=== PATIENT | female | born 1970 | race African-American/Black ===

== ENCOUNTER → 2017-06-07 16:06 | Emergency (ER) | payer OTHER ==
[~2017-06-07 16:06] MED LIST: Albuterol HFA INHALER* 8 gm MDI INH ONE; Albuterol/Ipratropium NEB.SOL* Albuterol 2.5 MG/Ipratropium 0.5 MG 3 ML INH SCH; Albuterol/Ipratropium NEB.SOL* Albuterol 2.5 MG/Ipratropium 0.5 MG 3 ML ONE; Ketorolac INJ* 30 MG/ML 1 ML VIAL IM ONE; NS 0.9% 1000 ML* 1,000 ML IV ONE
[2017-06-07 16:50] LABS: ABS Basophils 0.1 10^3/ul (0-0.2); ABS Eosinophils 0.2 10^3/ul (0-0.6); ABS Lymphocytes 1.6 10^3/ul (1.0-4.8); ABS Monocytes 1.2 10^3/ul (0-0.8); ABS Neutrophils 12.9 10^3/ul (1.5-7.7); ABS Nucleated RBC 0 10^3/ul; Hematocrit 38 % (35-47); Hemoglobin 12.8 g/dl (12.0-16.0); Lymphocyte % 10.2 % (25-47); Mean Corpuscular HGB Conc 34 g/dl (31-36); Mean Corpuscular Hemoglobin 31 pg (27-31); Mean Corpuscular Volume 91 fL (80-97); Mean Platelet Volume 8.7 um3 (7.4-10.4); Nucleated Red Blood Cells % 0; Platelet Count 292 10^3/ul (150-450); Red Blood Count 4.14 10^6/ul (4.0-5.4); Red Cell Distribution Width 14 % (10.5-15)
[2017-06-07 17:07] LABS: EGFR Non-African American 77.7 (>60)
--- NOTE | 2017-06-07 17:24 | RAD ---
HISTORY: Cough COMPARISONS: June 07, 2010 VIEWS: 4: Frontal dual-energy and lateral views of the chest. FINDINGS: CARDIOMEDIASTINAL SILHOUETTE: The cardiomediastinal silhouette is normal. KRYSTAL: The krystal are normal. PLEURA: The costophrenic angles are sharp. No pleural abnormalities are noted. LUNG PARENCHYMA: The lungs are clear. ABDOMEN: The upper abdomen is clear. There is no subphrenic gas. BONES AND SOFT TISSUES: No bone or soft tissue abnormalities are noted. OTHER: None. IMPRESSION: NO ACTIVE CARDIOPULMONARY DISEASE.
[2017-06-07 17:58] VITALS: BP 125/65
--- NOTE | 2017-06-09 07:54 | ED ---
Eduardo Glasgow Angela, scribed for Ruben Patel MD on 06/07/17 at 1630 . Respiratory - HPI Summary HPI Summary: This pt is a 46 y/o female presenting to [facility] c/o cough and sore throat. Pt reports her cough began last night and her sore throat began this morning. She states her cough is not very productive and she is able to taste the sputum in her mouth. Denies fever, chills, SOB, chest pain. Pt additionally reports right elbow pain, denies trauma or injury. 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 PMHx includes HTN and DM. - History of Current Complaint Chief Complaint: EDGeneral Stated Complaint: GENERAL ILLNESS Hx Obtained From: Patient Onset/Duration: Lasting Days, Still Present Timing: Constant Current Severity: Severe Pain Intensity: 10 - sore throat Character: Cough (Productive) Sputum Amount: Swallowed by Patient Aggravating Factor(s): Nothing Alleviating Factor(s): Nothing Associated Signs and Symptoms: URI - cough and sore throat, Nasal Congestion - Allergy/Home Medications Allergies/Adverse Reactions: Allergies Allergy/AdvReac Type Severity Reaction Status Date / Time codeine Allergy Nausea And Verified 06/07/17 16:17 Vomiting PMH/Surg Hx/FS Hx/Imm Hx Endocrine/Hematology History: Reports: Hx Diabetes Cardiovascular History: Reports: Hx Hypertension Respiratory History: Reports: Hx Asthma Infectious Disease History: No Infectious Disease History: Denies: Traveled Outside the [place] in Last 30 Days - Family History Known Family History: Positive: Cardiac Disease - father - Social History Alcohol Use: Occasionally Substance Use Type: Reports: None Smoking Status (MU): Current Every Day Smoker Review of Systems Negative: Fever, Chills Positive: Sore Throat Negative: Chest Pain Positive: Cough. Negative: Shortness Of Breath Musculoskeletal: Other - right elbow pain Skin: Negative Neurological: Negative All Other Systems Reviewed And Are Negative: Yes Physical Exam - Summary Physical Exam Summary: VITAL SIGNS: Reviewed. GENERAL: Patient is a well-developed and nourished female who is lying comfortable in the stretcher. Patient is not in any acute respiratory distress. HEAD AND FACE: No signs of trauma. No ecchymosis, hematomas or skull depressions. No sinus tenderness. Positive for nasal congestion and runny nose. EYES: PERRLA, EOMI x 2, No injected conjunctiva, no nystagmus. EARS: Hearing grossly intact. Ear canals and tympanic membranes are within normal limits. MOUTH: Pharyngeal erythema. NECK: Supple, trachea is midline, no adenopathy, no JVD, no carotid bruit, no c- spine tenderness, neck with full ROM. CHEST: Symmetric, no tenderness at palpation LUNGS: Wheezing in both bases of the lungs. CVS: Regular rate and rhythm, S1 and S2 present, no murmurs or gallops appreciated. ABDOMEN: Soft, non-tender. No signs of distention. No rebound no guarding, and no masses palpated. Bowel sounds are normal. EXTREMITIES: FROM in all major joints, no edema, no cyanosis or clubbing. NEURO: Alert and oriented x 3. No acute neurological deficits. Speech is normal and follows commands. SKIN: Dry and warm Triage Information Reviewed: Yes Vital Signs On Initial Exam: Initial Vitals Temp Pulse Resp BP Pulse Ox 97 F 105 20 165/88 94 06/07/17 16:14 06/07/17 16:14 06/07/17 16:14 06/07/17 16:14 06/07/17 16:14 Vital Signs Reviewed: Yes Diagnostics - Vital Signs Vital Signs Temp Pulse Resp BP Pulse Ox 06/07/17 16:14 97 F 105 20 165/88 94 - Laboratory Result Diagrams: 06/07/17 16:39 06/07/17 16:39 Lab Statement: Any lab studies that have been ordered have been reviewed, and results considered in the medical decision making process. - Radiology Chest XR Xray Interpretation: No Acute Changes - IMPRESSION: No active cardiopulmonary disease. Dr. Patel has reviewed this radiology report. Radiology Interpretation Completed By: Radiologist Re-Evaluation - Re-Evaluation First Eval Re-Evaluation Time: 17:50 Comment: I reviewed the lab and XR results with the pt. She will be discharged home. Disposition - Course Assessment/Plan: This pt is a 46 y/o female presenting to [facility] c/o cough and sore throat. Pt reports her cough began last night and her sore throat began this morning. She states her cough is not very productive and she is able to taste the sputum in her mouth. Denies fever, chills, SOB, chest pain. Pt additionally reports right elbow pain, denies trauma or injury. 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 PMHx includes HTN and DM. Test results without any significant abnormalities except for WBC of 16, glucose of 145, CRP of 94.28. Influenza A and B are both negative. Rapid strep test is negative. Chest XR: No active cardiopulmonary disease. In the ED course the pt was given IV fluids, duoneb, and toradol for the pain. After these medications the pt reports she is feeling better and her pain has resolved. Therefore she will be discharged to home with follow up from her PCP. I discussed all the findings and test results with the patient. All questions were answered to patient satisfaction. There were no further complaints or concerns. Pt will be discharged home with an albuterol inhaler and a prescription for Azithromycin. She is instructed to return to the ED for any worsening or new symptoms. Pt is hemodynamically stable, alert and oriented x3. - Diagnoses Provider Diagnoses: Bronchitis Discharge - Sign-Out/Discharge Documenting (check all that apply): Discharge - discharge to home - Discharge Plan Condition: Stable Disposition: HOME Prescriptions: Azithromyxin BILLY (NF) [Z-Billy (Zithromax) 250 mg tabs #6] 2 tab PO .TODAY, THEN 1 DAILY #6 tab Patient Education Materials: Acute Bronchitis (ED) Referrals: Sahe Jama MD [Primary Care Provider] - 3 Days Additional Instructions: Please follow up with your primary care provider. RETURN TO THE ED FOR ANY NEW OR WORSENING SYMPTOMS. The documentation as recorded by the Eduardo whatley Angela accurately reflects the service I personally performed and the decisions made by me, Ruben Patel MD.
== END | disposition home or self-care (01) ==
LOC: ED 16:06
DX: J40 Bronchitis, not specified as acute or chronic (principal); J02.9 Acute pharyngitis, unspecified; Z88.8 Allergy status to other drugs, medicaments and biological substances; E11.9 Type 2 diabetes mellitus without complications; I10 Essential (primary) hypertension; J45.909 Unspecified asthma, uncomplicated; F17.210 Nicotine dependence, cigarettes, uncomplicated
CPT/HCPCS: 36415; 71046; 80053; 85025; 86140; 87502; 87651; 94640; 96372; 99282; A9270-GY; J1885

== ENCOUNTER 2017-10-09 06:28 | Inpatient (IN) | payer OTHER ==
[2017-10-09] MEDS ORDERED: Ketorolac INJ* 30 MG/ML 1 ML VIAL IV ONE (06:57)
[2017-10-09] MEDS ORDERED: Aspirin 81 mg CHEW TAB* 81 MG TAB.CHEW PO ONE (07:08)
[2017-10-09] MEDS ORDERED: Nitroglycerin TAB 0.4 MG* 0.4 MG TAB SL ONE (07:08)
[2017-10-09] MEDS ORDERED: Heparin for STEMI(*) 5,000 UNITS/ML 1 ML VIAL IV ONE (07:13)
[2017-10-09] MEDS ORDERED: Ticagrelor* 90 MG TAB PO ONE (07:13)
--- NOTE | 2017-10-09 07:19 | ED ---
HPI Chest Pain - HPI Summary HPI Summary: Patient is a 47-year-old female with a history of HTN, HCL, diabetes and smoking history presenting to the ED with 24 hours of intermittent chest pain. Chest pain was present on exertion yesterday while walking her dog, and relieved after several minutes. She then states she began coughing frequently and develop some mid upper back pain. Chest pain has been intermittent since yesterday and occurring every few hours to every few minutes. She endorses radiation of pain from the midsternal region to the bilateral neck and radiating to the right arm. This is also intermittent. Denies any sweats or chills. Denies any known fever. She has not taken any medication prior to arrival. - History of Current Complaint Chief Complaint: EDChestPainROMI Time Seen by Provider: 10/09/17 06:38 Hx Obtained From: Patient Onset/Duration: Started Days Ago - 24 hours Timing: Constant Initial Severity: Worse Since: - LAST EVENING Current Severity: Severe Pain Intensity: 10 Pain Scale Used: 0-10 Numeric Chest Pain Radiates: No - Review Character: Dull/Aching - Back pain and midsternal chest pain radiating into the right arm Aggravating Factor(s): Exertion Alleviating Factor(s): Nothing Associated Signs and Symptoms: Positive: Chest Pain - Risk Factors Pulmonary Embolism Risk Factors: Negative TAD Risk Factors: Negative AMI/ACS Risk Factors: Obesity, Family History, Smoking, Dyslipidemia - Allergy/Home Medications Allergies/Adverse Reactions: Allergies Allergy/AdvReac Type Severity Reaction Status Date / Time codeine Allergy Nausea And Verified 06/07/17 16:17 Vomiting PMH/Surg Hx/FS Hx/Imm Hx Previously Healthy: Yes Endocrine/Hematology History: Reports: Hx Diabetes Cardiovascular History: Reports: Hx Hypertension Respiratory History: Reports: Hx Asthma - Immunization History Hx Pertussis Vaccination: No Immunizations Up to Date: Unable to Obtain/Confirm Infectious Disease History: No Infectious Disease History: Denies: Traveled Outside the [place] in Last 30 Days - Family History Known Family History: Positive: Cardiac Disease - father - Social History Occupation: Employed Full-time Lives: With Family Alcohol Use: Occasionally Hx Substance Use: No Substance Use Type: Reports: None Hx Tobacco Use: Yes Smoking Status (MU): Current Every Day Smoker Review of Systems Constitutional: Negative Negative: Fever, Chills, Fatigue, Skin Diaphoresis Positive: Chest Pain. Negative: Palpitations Negative: Shortness Of Breath, Cough Negative: Abdominal Pain, Vomiting, Diarrhea, Nausea Genitourinary: Negative Positive: no symptoms reported, see HPI Positive: Arthralgia - mid upper back pain Skin: Negative Neurological: Negative All Other Systems Reviewed And Are Negative: Yes Physical Exam Triage Information Reviewed: Yes Vital Signs On Initial Exam: Initial Vitals Temp Pulse Resp BP Pulse Ox 97.5 F 99 20 142/113 95 10/09/17 06:29 10/09/17 06:29 10/09/17 06:29 10/09/17 06:29 10/09/17 06:29 Vital Signs Reviewed: Yes Appearance: Positive: Well-Appearing, Well-Nourished Skin: Positive: Warm, Skin Color Reflects Adequate Perfusion Head/Face: Positive: Normal Head/Face Inspection Eyes: Positive: EOMI, RAMONITA, Conjunctiva Clear Neck: Positive: Supple, No Lymphadenopathy Respiratory/Lung Sounds: Positive: Clear to Auscultation, Breath Sounds Present Cardiovascular: Positive: Normal - On physical examination, no findings of abdominal or carotid bruits, RRR, Pulses are Symmetrical in both Upper and Lower Extremities. Negative: Leg Edema Left, Leg Edema Right Bowel Sounds: Positive: Present Musculoskeletal: Positive: Normal, Strength/ROM Intact Neurological: Positive: Sensory/Motor Intact, Alert, Oriented to Person Place, Time, Speech Normal Psychiatric: Positive: Normal, Affect/Mood Appropriate AVPU Assessment: Alert Diagnostics - Vital Signs Vital Signs Temp Pulse Resp BP Pulse Ox 10/09/17 06:29 97.5 F 99 20 142/113 95 - Laboratory Result Diagrams: 10/09/17 07:13 10/09/17 07:13 Lab Statement: Any lab studies that have been ordered have been reviewed, and results considered in the medical decision making process. Chest Pain Course/Dx - Course Course Of Treatment: On arrival, at 6:38 AM EKG shows normal sinus rhythm with no ST elevations. She refuses any medications on arrival, however she is agreeable to Toradol for her back pain. After arrival, at approximately 7 AM, patient developed worsening chest pain in the RN noticed on the monitor ST elevations in V5 and V6. A repeat EKG was immediately obtained which confirms ST elevations in V5 and V6 with an acute DC. STEMI alert was called at 7:[address] Engel made aware. Heparin, Brillinta, aspirin was given. Heparin drip was beginning to start at 7:55 AM when she was transferred upstairs. Immediately after medications were given, patient endorses improvement of chest pain, however continues to endorse back pain. - Chest Pain Differential Diagnosis/HQI/PQRI: Acute DC, ACS, Angina - Diagnoses Provider Diagnoses: STEMI (ST elevation myocardial infarction) During the Visit The Following Alert/Code Occurred: STEMI - Provider Notifications Discussed Care Of Patient With: Gilson Engel Time Discussed With Above Provider: 07:15 Instructed by Provider To: MD Will See In ED Admit/Transition Orders Completed By ED Provider: No - Critical Care Time Critical Care Time: 30-74 min - 60 minutes CC time d/t STEMI Discharge - Sign-Out/Discharge Documenting (check all that apply): Patient Departure - Discharge Plan Condition: Fair Disposition: ADMITTED TO [facility] - Billing Disposition and Condition Condition: FAIR Disposition: Admitted to [facility]
[2017-10-09] MEDS ORDERED: Lidocaine 1%* 5 ML VIAL ONE (07:21)
[2017-10-09] MEDS ORDERED: Heparin 2 UNITS/ML IVPREMIX* 2,000 ML IV ONE (07:21)
[2017-10-09] MEDS ORDERED: Iohexol 350 (CONTRAST) 200 ML MDV IV ONE (07:21)
[2017-10-09 07:26] LABS: ABS Basophils 0.1 10^3/ul (0-0.2); ABS Eosinophils 0.1 10^3/ul (0-0.6); ABS Lymphocytes 1.8 10^3/ul (1.0-4.8); ABS Monocytes 0.6 10^3/ul (0-0.8); ABS Neutrophils 7.5 10^3/ul (1.5-7.7); ABS Nucleated RBC 0 10^3/ul; Eosinophil % 1.4 % (0-6); Hematocrit 42 % (35-47); Hemoglobin 14.3 g/dl (12.0-16.0); Lymphocyte % 18.1 % (25-47); Mean Corpuscular HGB Conc 34 g/dl (31-36); Mean Corpuscular Hemoglobin 30 pg (27-31); Mean Corpuscular Volume 87 fL (80-97); Mean Platelet Volume 8.9 um3 (7.4-10.4); Nucleated Red Blood Cells % 0; Platelet Count 294 10^3/ul (150-450); Red Blood Count 4.81 10^6/ul (4.00-5.40); Red Cell Distribution Width 14 % (10.5-15); White Blood Count 10.2 10^3/ul (3.5-10.8)
[2017-10-09] MEDS ORDERED: VERAPAMIL 2.5 MG/ML 2 ML VIAL ** 5 mg/2 ml ONE (07:29)
[2017-10-09] MEDS ORDERED: Heparin(*) 1000 UNIT/ML 10 ML VIAL CATH LAB IV ONE (07:30)
[2017-10-09] MEDS ORDERED: nitroGLYCERIN DRIP* 25,000 MCG/250 ML BTL ONE (07:31)
[2017-10-09 07:34] LABS: INR 0.82 (0.77-1.02)
--- NOTE | 2017-10-09 07:44 | RAD ---
INDICATION: Chest pain COMPARISON: June 07, 2017 TECHNIQUE: An AP portable view obtained at 0720 hours is submitted. FINDINGS: Bones/Soft Tissues: There are no acute bony findings. Cardiomediastinal: The cardiomediastinal silhouette is normal. Lungs: There are no infiltrates. Pleura: There are no pleural effusions. Other: None IMPRESSION: NO ACTIVE DISEASE.
[2017-10-09] MEDS ORDERED: Heparin DRIP 25,000 UNITS(*) 25,000 UNITS/500 ML BAG IV SCH (07:45)
[2017-10-09] MEDS ORDERED: Heparin DRIP 25,000 UNITS(*) 25,000 UNITS/500 ML BAG ONE (07:47)
[2017-10-09] MEDS ORDERED: Heparin VIAL(*) 5000 UNITS/ML VIAL (FIVE THOUSAND) IV PRN (07:52)
[2017-10-09] MEDS ORDERED: Iodixanol* (CONTRAST) 320 MG/ML 100 ML SDV ONE (08:01)
[2017-10-09] MEDS ORDERED: Midazolam* 1 MG/ML 10 ML VIAL (10 MG) ONE (08:11)
[2017-10-09] MEDS ORDERED: fentaNYL* 50 MCG/ML 2 ML VIAL (100 MCG VIAL) ONE (08:11)
[2017-10-09] MEDS ORDERED: Norepinephrine VIAL* 1 MG/ML 4 ML VIAL ONE (08:32)
[2017-10-09] MEDS ORDERED: Atropine SYRINGE* 0.1 MG/ML 10 ML SYRINGE (1 MG) ONE (08:54)
[2017-10-09] MEDS ORDERED: Nitroglycerin TAB 0.4 MG* 0.4 MG TAB SL PRN (09:04)
[2017-10-09] MEDS ORDERED: NS 0.9% 1000 ML* 400 ML IV ONE (09:04)
[2017-10-09 09:43] LABS: EGFR Non-African American 71.1 (>60)
[2017-10-09] MEDS ORDERED: Metoprolol Tartrate TAB* 25 MG PO SCH (10:00)
[2017-10-09] MEDS: Levalbuterol 0.63MG/3ML NEB* UNIT OF USE INH SCH ×2 (11:18→15:34)
[2017-10-09] MEDS ORDERED: ALPRAZolam TAB* 0.5 MG PO PRN (11:51)
[2017-10-09] MEDS ORDERED: Dextrose 50% Syringe 50 ML* 25 GM/50 ML SYRINGE IV PUSH PRN (11:59)
[2017-10-09] MEDS ORDERED: Insulin LISPRO* 1 UNITS UNIT SUBCUT SCH (12:00)
[2017-10-09] MEDS ORDERED: Nicotine PATCH 14 MG/24 HR* PATCH TRANSDERM SCH (12:00)
[2017-10-09] MEDS ORDERED: Insulin GLARGINE(*) 1 UNITS UNIT SUBCUT SCH (12:00)
--- NOTE | 2017-10-09 12:01 | HP ---
CC: Shae Jama MD; Gilson Engel MD * HISTORY AND PHYSICAL: DATE OF ADMISSION: 10/09/17 PRIMARY CARE PHYSICIAN: Shae Jama MD. HISTORY OF PRESENT ILLNESS: A 47-year-old diabetic presented to the ER with inferior ST elevation infarct. She has no previous cardiac history. For the past 24 hours, she has had waxing and waning intermittent chest discomfort radiating through to her back and into right arm. The day prior to admission, she had this with exertion walking her dog. She is subsequently developed rest pain, presented to the ER, first EKG was not diagnostic, she had recurrence of chest pain and repeat EKG demonstrated inferior ST elevation, STEMI was called. PAST MEDICAL HISTORY: Diabetes type 2, obesity, hypertension, hyperlipidemia, asthma. MEDICATIONS: Prehospital medications per the intake form: 1. Singulair 1 at bedtime. 2. Metformin 1 g b.i.d. 3. Crestor listed as 12 mg daily. 4. ?Captopril 10 mg b.i.d. ALLERGIES: CODEINE. FAMILY HISTORY: Positive for heart disease. SOCIAL HISTORY: She is a smoker. 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 REVIEW OF SYSTEMS: General: No weight loss. No fevers. COP WINDER: No history of TIA or CVA. GI: No history of bleeding. Heme: No history of malignancy or anemia. Circulatory: No claudication. Pulmonary: She denies any lung disease , hemoptysis. Remainder, all negative. PHYSICAL EXAMINATION GENERAL: She was complaining of no chest discomfort when evaluated. It resolved after nitroglycerin and institution of medical therapy in the ER. VITAL SIGNS: Presenting, BP 170/95, heart rate 93, sinus rhythm. HEENT: Normal without xanthelasma, scleral injection, or jaundice. EOMs normal. Cranial nerves grossly intact. NECK: JVP not elevated. Carotids, no bruits palpable. LUNGS: Her lungs were clear to percussion and auscultation. CARDIAC: Regular rhythm, apex and RV not palpable. No gallop, no murmur, or rub. ABDOMEN: Obese, nontender. No bruit, aorta not palpable. EXTREMITIES: Radial, femoral, and pedal pulses palpable. She has no cyanosis, clubbing, or edema. PSYCH: She is oriented appropriately, anxious. SKIN: Warm and perfused. LABORATORY DATA: EKG shows inferior ST elevation infarct. CBC and BMP are unremarkable. Chest x-ray was read as unremarkable. IMPRESSION: 1. Inferior wall ST elevation infarct. She has had stuttering symptoms for 24 hours, again is pain free with medical therapy. She had inferior injury current on the electrocardiogram. She underwent emergent catheterization. 2. Obesity. 3. Diabetes type 2. 4. Hypertension. 5. Hyperlipidemia. 6. Tobacco use. We will encourage her not to resume smoking. [id number]/[facility] #: [id number] [facility]
[2017-10-09 14:15] VITALS: BP 134/90
[2017-10-09] MEDS ORDERED: Atorvastatin* 80 MG TAB PO SCH (17:00)
[2017-10-09] MEDS ORDERED: Ticagrelor* 90 MG TAB PO SCH (21:00)
--- NOTE | 2017-10-09 23:15 | DS ---
CC: Dr. Shae Jama; Dr. Gilson Engel * DISCHARGE SUMMARY: DATE OF ADMISSION: 10/09/17 DATE OF SIGNING OUT AMA: 10/09/17 PRIMARY CARE PHYSICIAN: Dr. Shae Jama. DISCHARGE DIAGNOSES: 1. Inferior wall ST elevation infarct. 2. Diabetes type 2. 3. Obesity. 4. Hypertension. 5. Hyperlipidemia. 6. Solitary kidney. 7. Chronic obstructive pulmonary disease. CONDITION ON DISCHARGE: Guarded. DISPOSITION: The patient is signing out AMA. PROCEDURE: Cardiac cath, stent placement RCA 2.75 x 20 drug-eluting stent. DISCHARGE MEDICATIONS: 1. Aspirin 81 mg daily. 2. Lipitor 80 mg daily. 3. Toprol XL 50 mg daily. 4. Nicotine patch 14 mg q.24 hours. 5. Nitroglycerin 0.4 sublingual p.r.n. 6. Brilinta 90 mg b.i.d. for a minimum of 1 year without interruption. FOLLOWUP: Follow up next week as scheduled with Dr. Ridley, MOB-[id number], for wound check, and with Dr. Jama as previously. DIET: Low-fat, low-cholesterol, diabetic, cardiac. ACTIVITY: No strenuous exertion for 1 week. WOUND CARE: Shower only for 3 days. HISTORY: See H and P. Further history revealed that the patient has not taken any of her medications for a quite sometime. DIAGNOSTIC STUDIES/LAB DATA: Her admission BMP notable for creatinine of 0.85, GFR 71.1. Random blood sugar high at 331, lactate 0.9. Hemoglobin A1c high at 13.9. Her SGOT and SGPT were normal, alkaline phosphatase was elevated at 135. Her first troponin was 0.71, then 0.8, then 1.23. Her cholesterol was high at 283, triglycerides 195, LDL 197, HDL 47.5. TSH normal at 1.07. BCG less than 0.6. EKG post-revascularization shows poor R-wave progression, resolution of inferior ST elevation. HOSPITAL COURSE: She presented with a stuttering inferior ST elevation infarct , underwent emergent catheterization with stenting of a culprit RCA high grade stenosis with a 2.75 x 20 mm drug-eluting stent. LV function was preserved. Within a few hours of the procedure, the patient vehemently declared that she would not be staying in the hospital for the recommended length of stay, initially she agreed to stay until tomorrow, but then decided she wanted to sign out AMA today. She refused insulin even though her blood sugar is in the 300s. She readily admits she has not been taking any of her medications. I explained to her in great detail with the family member present that she was taking a significant risk leaving against medical advice, including possible sudden . She still has her hemostatic band on her wrist, which has not yet been fully removed, she is demanding to leave and says that she will take care of it. We tried to explained to her that that is not a good idea, but she refuses to stay. I discussed with her medical regimen, the importance of following her medications, including dual- antiplatelet therapy with aspirin 81 mg daily and Brilinta 90 b.i.d. without interruption for a minimum of 1 year. We provided her a free 30-day supply from the hospital pharmacy. She has a scheduled followup visit with Dr. Ridley next week. She is clearly competent and able to make decisions, understands that she is taking full responsibility for signing out AMA, and understands the potential lethal complications that are possible. [id number]/[facility] #: [id number] OSCAR
--- NOTE | 2017-10-09 23:24 | CATH ---
CC: Dr. Jama * STENT REPORT: DATE OF PROCEDURE: 10/09/17 - ROOM #ICU-12 PRIMARY CARE PHYSICIAN: Dr. Jama. PROCEDURES: 1. Right radial artery access, bilateral selective coronary cineangiography. 2. Left heart catheterization. 3. Left ventriculography. 4. Stent placement, RCA, 2.75 x 20 Synergy drug-eluting stent. HISTORY: A 47-year-old diabetic who has stopped all her medications, presenting with inferior stuttering ST elevation infarct. PROCEDURE ACCESS: Right radial artery, sheath 6F slender. MEDICATIONS: 1. Subcu lidocaine. 2. IV Versed. 3. IV fentanyl. 4. Heparin 3000 units. 5. Verapamil 3 mg. 6. Nitroglycerin 300 mcg IA, in addition to loading dose of aspirin and Brilinta, as well as heparin 3000 units given in the ER. DIAGNOSTIC CATHETER: 5F TIG4, 5FL 4, 5F pigtail. Guiding catheter RCA, 6FR 4, Y14 BMW. Used to deploy a 2.75 x 20 Synergy drug- eluting stent, mid to distal RCA 11 atmospheres for 10 seconds, then postdilated with a 2.75 x 20 NC balloon to 20 atmospheres for 30 seconds. LV gram was performed post revascularization. HEMODYNAMICS: LV 102/6-17, no aortic valve gradient on pullback. ANGIOGRAPHY: RCA: The RCA is large, dominant with tortuosity in a large distribution, acute marginal branch is moderate, before the crux the RCA has a gradually tapering up to 80 to 90% stenosis before a small to moderate PDA and moderate posterolateral. Left main: The left main is large, has no stenosis. LAD: The LAD is large, extends past the apex, it has 2 areas of mild stenosis after the first septal and then again a few more centimeters more distally, maximal stenosis angiographically 40% with a short lesion, flow is ANIRUDH 3. Circumflex: The circumflex is large, nondominant with a large single marginal branch, the circumflex has mild proximal nonobstructive plaquing. After RCA stent placement and postdilatation, there is no residual stenosis, no dissection, flow is ANIRUDH 3. LV gram: There is ectopy with the injection, post PVC normal wall motion, grossly normal ejection fraction. CONCLUSION: 1. Single vessel disease with nonobstructive plaque in the LAD and circumflex. Excellent angiographic result with drug-eluting stent placement RCA in the setting of inferior stuttering ST elevation infarct. 2. Normal to near normal LV systolic function. 3. Normal left-sided hemodynamics. 4. Successful right radial artery access. [id number]/[facility] #: [id number] MTDD
[2017-10-10] MEDS ORDERED: Aspirin 81 mg CHEW TAB* 81 MG TAB.CHEW PO SCH (09:00)
== END 2017-10-09 14:10 | disposition left against medical advice (07) | DRG 174 ==
LOC: ED 06:28 → CHICATH 07:53 → ICU 09:04
PROVIDERS: ADMIT Internal Medicine Cardiovascular Disease; ATTEND Internal Medicine Cardiovascular Disease
PROC: 4A023N7 Measurement of Cardiac Sampling and Pressure, Left Heart, Percutaneous Approach (ICD-10-PCS; 2017-10-09)
PROC: B2151ZZ Fluoroscopy of Left Heart using Low Osmolar Contrast (ICD-10-PCS; 2017-10-09)
PROC: B2111ZZ Fluoroscopy of Multiple Coronary Arteries using Low Osmolar Contrast (ICD-10-PCS; 2017-10-09)
PROC: 027034Z Dilation of Coronary Artery, One Artery with Drug-eluting Intraluminal Device, Percutaneous Approach (ICD-10-PCS; principal; 2017-10-09 07:45)
DX: I21.19 ST elevation (STEMI) myocardial infarction involving other coronary artery of inferior wall (principal); Q60.0 Renal agenesis, unilateral; I10 Essential (primary) hypertension; E11.9 Type 2 diabetes mellitus without complications; E66.9 Obesity, unspecified; F17.210 Nicotine dependence, cigarettes, uncomplicated; M54.9 Dorsalgia, unspecified; E78.5 Hyperlipidemia, unspecified; Z53.21 Procedure and treatment not carried out due to patient leaving prior to being seen by health care provider; J44.9 Chronic obstructive pulmonary disease, unspecified; I25.10 Atherosclerotic heart disease of native coronary artery without angina pectoris; Z68.34 Body mass index [BMI] 34.0-34.9, adult; Z79.02 Long term (current) use of antithrombotics/antiplatelets; Z88.5 Allergy status to narcotic agent; Z85.79 Personal history of other malignant neoplasms of lymphoid, hematopoietic and related tissues; Z82.49 Family history of ischemic heart disease and other diseases of the circulatory system; Z72.89 Other problems related to lifestyle; Z79.82 Long term (current) use of aspirin
CPT/HCPCS: 36415; 71045; 80053; 80061; 82550; 82553; 83036; 83605; 83721; 83735; 83880; 84436; 84443; 84484; 84702; 85025; 85347; 85379; 85610; 85730; 87641; 93005; 94640; 99156; 99157; 99285; 99406; A9270-GY; C1725; C1769; C1876; C1887; C9606-RC; J0461; J1644; J2250; J3010

== ENCOUNTER 2018-03-28 09:51 | Emergency (ER) | payer OTHER ==
[2018-03-28 10:42] LABS: ABS Basophils 0.1 10^3/ul (0-0.2); ABS Eosinophils 0.1 10^3/ul (0-0.6); ABS Lymphocytes 1.5 10^3/ul (1.0-4.8); ABS Monocytes 0.5 10^3/ul (0-0.8); ABS Neutrophils 6.3 10^3/ul (1.5-7.7); ABS Nucleated RBC 0 10^3/ul; Eosinophil % 1.3 %; Hematocrit 22 % (35-47); Lymphocyte % 17.2 %; Mean Corpuscular HGB Conc 32 g/dl (31-36); Mean Corpuscular Hemoglobin 25 pg (27-31); Mean Corpuscular Volume 77 fL (80-97); Mean Platelet Volume 7.3 fL (7.4-10.4); Nucleated Red Blood Cells % 0.1; Platelet Count 508 10^3/ul (150-450); Red Blood Count 2.82 10^6/ul (4.00-5.40); Red Cell Distribution Width 16 % (10.5-15); White Blood Count 8.5 10^3/ul (3.5-10.8)
[2018-03-28 10:50] LABS: Activated Partial Thrombo Time 35.1 seconds (26.0-36.3); INR 0.9 (0.77-1.02)
[2018-03-28 10:53] LABS: Albumin 4.2 g/dL (3.2-5.2); Albumin/Globulin Ratio 1.6 (1-3); BUN/Creatinine Ratio 17.9 (8-20); Calcium 9.2 mg/dL (8.6-10.3); EGFR African American 87.2 (>60); EGFR Non-African American 72.1 (>60); Globulin 2.7 g/dL (2-4); Potassium 4.2 mmol/L (3.5-5.0); Total Bilirubin 0.3 mg/dL (0.2-1.0); Total Protein 6.9 g/dL (6.4-8.9)
--- NOTE | 2018-03-28 10:59 | ED ---
GI/ HPI - HPI Summary HPI Summary: A 47 y/o female accompanied by her daughter and granddaughter presents to [facility] with a chief complaint of a possible GI bleed on 03/26/18. Vital signs at 09:55 , HR 100 bpm, BP 142/83, O2 Sat 100. Per triage note the patient complains of, slow oozing rectal bleed, SOB and dizzy with changes in vision, weakness for the last week. Pt on Brilinta and had cardiac stent in October. Blood work done on 03/26/18 show H&H 7.3&23 with POS occult stool. The patient was sent from Dr. Potts office. Dr. Dodson is her leasing associate and Dr. Jama is her PCP. She denies any black bowel movements or bloody stool, fever, chills, erythema (eyes), sore throat, chest pain, shortness of breath, cough, abdominal pain, vomiting, nausea, dysuria, hematuria, myalgia, edema, rash and dizziness. She reports the SOB when working and also c/o dizziness and weakness. She also reports drinking soap suds on top of ice, with Yanet and Wanda being her favorites. She claimed that she stopped drinking soap suds for about 2 years, but recently started drinking soap suds. She claims that she never ran into problems when drinking soap suds. She reports that she does not want to stay in the ED, claiming that the day she had her ND she was not admitted. She had a left nephrectomy in 1985 and is not on dialysis. She reports that she has never had a GI bleed. - History of Current Complaint Chief Complaint: EDGIBleed Time Seen by Provider: 03/28/18 10:38 Stated Complaint: POSS INTERNAL BLEEDING Hx Obtained From: Patient Onset/Duration: Started Days Ago, Still Present Timing: Constant, Lasting Days Severity: Mild Current Severity: Mild Pain Intensity: 0 - out of 10 Pain Characteristics: Unable to describe Associated Signs and Symptoms: Positive: Weakness. Negative: Dizziness, Nausea , Vomiting, Black Tarry Stool, Blood w/Stool, Fever, Hematuria, Dysuria, Abdominal Pain, Cough, Chest Pain - Additional Pertinent History Primary Care Physician: [id number] - Allergy/Home Medications Allergies/Adverse Reactions: Allergies Allergy/AdvReac Type Severity Reaction Status Date / Time codeine Allergy Nausea And Verified 03/28/18 09:58 Vomiting Home Medications: Home Medications Atorvastatin* [Lipitor 80 MG*] 80 mg PO DAILY 03/28/18 [History Confirmed ] Captopril TAB* [Capoten TAB*] 12.5 mg PO BID 03/28/18 [History Confirmed ] Metoprolol Succinate XL TAB* [Toprol XL TAB*] 12.5 mg PO DAILY 03/28/18 [ History Confirmed 03/28/18] Montelukast Sodium TAB* [Singulair 10 MG TAB*] 10 mg PO DAILY 03/28/18 [History Confirmed 03/28/18] Pantoprazole TAB * [Protonix TAB*] 40 mg PO DAILY 03/28/18 [History Confirmed ] glipiZIDE [Glipizide ER] 20 mg PO DAILY 03/28/18 [History Confirmed 03/28/18] metFORMIN* [Glucophage 1000 MG TAB *] 1,000 mg PO BID 03/28/18 [History Confirmed 03/28/18] PMH/Surg Hx/FS Hx/Imm Hx Endocrine/Hematology History: Reports: Hx Diabetes Cardiovascular History: Reports: Hx Hypertension Respiratory History: Reports: Hx Asthma GI History: Reports: Other GI Disorders - only has one kidney History: Reports: Other Problems/Disorders - has only one kidney Sensory History: Denies: Hx Contacts or Glasses, Hx Hearing Aid Opthamlomology History: Denies: Hx Contacts or Glasses Infectious Disease History: No Infectious Disease History: Denies: Traveled Outside the [place] in Last 30 Days - Family History Known Family History: Positive: Cardiac Disease - father - Social History Alcohol Use: Occasionally Hx Substance Use: No Substance Use Type: Reports: None Hx Tobacco Use: Yes Smoking Status (MU): Heavy Every Day Tobacco Smoker Review of Systems Negative: Fever, Chills Positive: Other - Positive: vision changes. Negative: Erythema Negative: Sore Throat Negative: Chest Pain Positive: Shortness Of Breath - when working. Negative: Cough Gastrointestinal: Negative - black tarry stool, blood in stool Positive: Other - Positive: possible GI bleed. Negative: Abdominal Pain, Vomiting, Nausea Negative: dysuria, hematuria Negative: Myalgia, Edema Negative: Rash Neurological: Other - positive: dizziness Positive: Weakness All Other Systems Reviewed And Are Negative: Yes Physical Exam - Summary Physical Exam Summary: Constitutional: Well-developed, Well-nourished, Alert. (-) Distressed Skin: Warm, Dry HENT: Normocephalic; Atraumatic Eyes: Conjunctiva normal Neck: Musculoskeletal ROM normal neck. (-) JVD, (-) Stridor, (-) Tracheal deviation Cardio: Rhythm regular, rate normal, Heart sounds normal; Intact distal pulses; The pedal pulses are 2+ and symmetric. Radial pulses are 2+ and symmetric. (-) Murmur Pulmonary/Chest wall: Effort normal. (-) Respiratory distress, (-) Wheezes, (-) Rales Abd: Soft, (-) epigastric tenderness, (-) Distension, (-) Guarding, (-) Rebound Musculoskeletal: (-) Edema Lymph: (-) Cervical adenopathy Neuro: Alert, Oriented x3 Psych: Mood and affect Normal Triage Information Reviewed: Yes Vital Signs On Initial Exam: Initial Vitals Temp Pulse Resp BP Pulse Ox 96.9 F 100 19 142/83 100 03/28/18 09:55 03/28/18 09:55 03/28/18 09:55 03/28/18 09:55 03/28/18 09:55 Vital Signs Reviewed: Yes Diagnostics - Vital Signs Vital Signs Temp Pulse Resp BP Pulse Ox 03/28/18 10:02 91 132/78 100 03/28/18 09:55 96.9 F 100 19 142/83 100 - Laboratory Lab Results: Lab Results 03/28/18 03/28/18 03/28/18 Range/Units 10:19 10:19 10:19 WBC 8.5 (3.5-10.8) 10^3/ul RBC 2.82 L (4.00-5.40) 10^6/ul Hgb 7.0 L (12.0-16.0) g/dl Hct 22 L (35-47) % MCV 77 L (80-97) fL MCH 25 L (27-31) pg MCHC 32 (31-36) g/dl RDW 16 H (10.5-15) % Plt Count 508 H (150-450) 10^3/ul MPV 7.3 L (7.4-10.4) fL Neut % (Auto) 74.4 % Lymph % (Auto) 17.2 % Twiggs % (Auto) 5.5 % Eos % (Auto) 1.3 % Baso % (Auto) 1.6 % Absolute Neuts (auto) 6.3 (1.5-7.7) 10^3/ul Absolute Lymphs (auto) 1.5 (1.0-4.8) 10^3/ul Absolute Monos (auto) 0.5 (0-0.8) 10^3/ul Absolute Eos (auto) 0.1 (0-0.6) 10^3/ul Absolute Basos (auto) 0.1 (0-0.2) 10^3/ul Absolute Nucleated RBC 0 10^3/ul Nucleated RBC % 0.1 INR (Anticoag Therapy) 0.90 (0.77-1.02) APTT 35.1 (26.0-36.3) seconds Sodium 135 (135-145) mmol/L Potassium 4.2 (3.5-5.0) mmol/L Chloride 107 (101-111) mmol/L Carbon Dioxide 22 (22-32) mmol/L Anion Gap 6 (2-11) mmol/L BUN 15 (6-24) mg/dL Creatinine 0.84 (0.51-0.95) mg/dL Est GFR ( Amer) 87.2 (>60) Est GFR (Non-Af Amer) 72.1 (>60) BUN/Creatinine Ratio 17.9 (8-20) Glucose 221 H (70-100) mg/dL Calcium 9.2 (8.6-10.3) mg/dL Total Bilirubin 0.30 (0.2-1.0) mg/dL AST 18 (13-39) U/L ALT 20 (7-52) U/L Alkaline Phosphatase 113 H (34-104) U/L Total Protein 6.9 (6.4-8.9) g/dL Albumin 4.2 (3.2-5.2) g/dL Globulin 2.7 (2-4) g/dL Albumin/Globulin Ratio 1.6 (1-3) Blood Type Antibody Screen 03/28/18 Range/Units 10:19 WBC (3.5-10.8) 10^3/ul RBC (4.00-5.40) 10^6/ul Hgb (12.0-16.0) g/dl Hct (35-47) % MCV (80-97) fL MCH (27-31) pg MCHC (31-36) g/dl RDW (10.5-15) % Plt Count (150-450) 10^3/ul MPV (7.4-10.4) fL Neut % (Auto) % Lymph % (Auto) % Twiggs % (Auto) % Eos % (Auto) % Baso % (Auto) % Absolute Neuts (auto) (1.5-7.7) 10^3/ul Absolute Lymphs (auto) (1.0-4.8) 10^3/ul Absolute Monos (auto) (0-0.8) 10^3/ul Absolute Eos (auto) (0-0.6) 10^3/ul Absolute Basos (auto) (0-0.2) 10^3/ul Absolute Nucleated RBC 10^3/ul Nucleated RBC % INR (Anticoag Therapy) (0.77-1.02) APTT (26.0-36.3) seconds Sodium (135-145) mmol/L Potassium (3.5-5.0) mmol/L Chloride (101-111) mmol/L Carbon Dioxide (22-32) mmol/L Anion Gap (2-11) mmol/L BUN (6-24) mg/dL Creatinine (0.51-0.95) mg/dL Est GFR ( Amer) (>60) Est GFR (Non-Af Amer) (>60) BUN/Creatinine Ratio (8-20) Glucose (70-100) mg/dL Calcium (8.6-10.3) mg/dL Total Bilirubin (0.2-1.0) mg/dL AST (13-39) U/L ALT (7-52) U/L Alkaline Phosphatase (34-104) U/L Total Protein (6.4-8.9) g/dL Albumin (3.2-5.2) g/dL Globulin (2-4) g/dL Albumin/Globulin Ratio (1-3) Blood Type Pending Antibody Screen Pending Result Diagrams: 03/28/18 10:19 03/28/18 10:19 Lab Statement: Any lab studies that have been ordered have been reviewed, and results considered in the medical decision making process. Re-Evaluation - Re-Evaluation First Eval Re-Evaluation Time: 12:04 Change: Unchanged Comment: Discussed risks of leaving AMA including disability, and heart strain. Since she was against admission and a colonoscopy we tried for a compromise of a full blood transfusion but she declined. We took into account her concerns about her dogs and work but she was rather argumentative, claiming that her triage note was incorrect. She is known to be uncoopertative as she left after her STEMI. GIGU Course/Dx - Course Course Of Treatment: A 47 y/o female accompanied by her daughter and granddaughter presents to [facility] with a chief complaint of a possible GI bleed on 03/26/18. Discussed case with Dr. Guerra, hospitalist, who is unaware of this patient. Brilinta needs to be held. Recommends colonoscopy tomorrow. At 10:19 Hgb low at 7.0 Hgb low at 2.82. The patient wanted to leave AMA. Discussed risks of leaving AMA including disability, , heart attack and heart strain. Since she was against admission and a colonoscopy we tried for a compromise of a full blood transfusion but she declined. We took into account her concerns about her dogs and work but she was rather argumentative, claiming that her triage note was incorrect. She is known to be uncoopertative as she left after her STEMI. The patient left AMA. - Diagnoses Provider Diagnoses: GI bleeding, Symptomatic anemia - Physician Notifications Discussed Care Of Patient With: Ninoska Guerra Time Discussed With Above Provider: 12:00 Instructed by Provider To: Other - She is unaware of this patient. Brilinta needs to be held. Recommends colonoscopy tomorrow. Discharge - Sign-Out/Discharge Documenting (check all that apply): Patient Departure - AMA - Discharge Plan Condition: Guarded Disposition: AGAINST MEDICAL ADVICE Referrals: Shae Jama MD [Primary Care Provider] - Additional Instructions: You are leaving against medical advice. Risks are , continued bleeding and heart attack. You need to stop taking Brilinta. You cannot have your colonoscopy done as an outpatient. Return to the ED if you change your mind for further blood transfusion. You need an inpatient scope. - Billing Disposition and Condition Condition: GUARDED Disposition: Against Medical Advice - Attestation Statements Document Initiated by Scribe: Yes Documenting Scribe: Jeremiah Jacobson Provider For Whom Scribe is Documenting (Include Credential): Jerome Joy MD Scribe Attestation: I, Jeremiah Jacobson, scribed for Jerome Joy MD on 03/28/18 at 2046. Scribe Documentation Reviewed: Yes Provider Attestation: The documentation as recorded by the scribeJeremiah accurately reflects the service I personally performed and the decisions made by me, Jerome Joy MD Status of Scribe Document: Viewed
[2018-03-28 15:33] VITALS: BP 146/80
== END 2018-03-28 16:04 | disposition left against medical advice (07) ==
LOC: ED 09:51
DX: K92.2 Gastrointestinal hemorrhage, unspecified (principal); D64.9 Anemia, unspecified; Z53.21 Procedure and treatment not carried out due to patient leaving prior to being seen by health care provider; Z72.0 Tobacco use; E11.9 Type 2 diabetes mellitus without complications; I10 Essential (primary) hypertension; J45.909 Unspecified asthma, uncomplicated; Z88.5 Allergy status to narcotic agent; Z90.5 Acquired absence of kidney
CPT/HCPCS: 36415; 80053; 85025; 85610; 85730; 86850; 86900; 86901; 86922; 99283; P9040

== ENCOUNTER 2018-03-29 10:07 | Emergency (ER) | payer OTHER ==
[2018-03-29 10:13] VITALS: BP 133/81
--- NOTE | 2018-03-29 11:16 | ED ---
GI/ HPI - HPI Summary HPI Summary: This patient is a 47 year old female presenting to the emergency room requesting an endoscopy. The patient states she was seen at her PCP for a one month checkup recently and blood work showed anemia. Along with this the PCP performed a rectal and pt was dx with GI bleed. She states that Dr. Mcgill was out of town and came into the ED yesterday for an endoscopy. She states that when she arrived the story changed and that she was told it was a two day procedure and that she needed a blood transfusion. She did receive one unit and signed out AMA before she received a second. She denies any sx such as melena, blood in her stool, and hematemesis. The patient appears impatient and is short with her answers. I reviewed the chart from her visit yesterday and obtained more history the patient did not express on exam. In her prior visit she reports SOB and dizzy with changes in vision, weakness for the last week and She reports the SOB when working and also c/o dizziness and weakness. She also reports drinking soap suds on top of ice, with Yanet and Wanda being her favorites. She claimed that she stopped drinking soap suds for about 2 years, but recently started drinking soap suds. She claims that she never ran into problems when drinking soap suds. She reports that she does not want to stay in the ED, claiming that the day she had her OR she was not admitted. She had a left nephrectomy in 1985 and is not on dialysis. She reports that she has never had a GI bleed. - History of Current Complaint Chief Complaint: EDGIBleed Time Seen by Provider: 03/29/18 10:56 Stated Complaint: ABNORMAL LABS Hx Obtained From: Patient Onset/Duration: Still Present Timing: Constant Severity: Moderate Current Severity: Moderate Pain Intensity: 0 Location of Pain: None Associated Signs and Symptoms: Positive: Negative - melena, blood in her stool, and hematemesis, Other: - SOB and dizzy with changes in vision, weakness for the last week - Additional Pertinent History Primary Care Physician: [id number] - Allergy/Home Medications Allergies/Adverse Reactions: Allergies Allergy/AdvReac Type Severity Reaction Status Date / Time codeine Allergy Nausea And Verified 03/29/18 10:11 Vomiting Home Medications: Home Medications Ticagrelor* [Brilinta 90 MG*] 90 mg PO BID 03/29/18 [History Confirmed 03/29/18] PMH/Surg Hx/FS Hx/Imm Hx Endocrine/Hematology History: Reports: Hx Diabetes Cardiovascular History: Reports: Hx Hypertension Respiratory History: Reports: Hx Asthma GI History: Reports: Other GI Disorders - only has one kidney History: Reports: Other Problems/Disorders - has only one kidney Sensory History: Denies: Hx Contacts or Glasses, Hx Hearing Aid Opthamlomology History: Denies: Hx Contacts or Glasses Infectious Disease History: No Infectious Disease History: Denies: Traveled Outside the [place] in Last 30 Days - Family History Known Family History: Positive: Cardiac Disease - father - Social History Alcohol Use: Occasionally Hx Substance Use: No Substance Use Type: Reports: None Hx Tobacco Use: Yes Smoking Status (MU): Heavy Every Day Tobacco Smoker Review of Systems Negative: Fever Eyes: Other - visual changes Positive: Shortness Of Breath Gastrointestinal: Negative - melena, blood in her stool, and hematemesis Neurological: Other - dizziness Positive: Weakness All Other Systems Reviewed And Are Negative: Yes Physical Exam - Summary Physical Exam Summary: Appearance: The patient is well-nourished in no acute distress and in no acute pain. Skin: The skin is warm and dry and skin color reflects adequate perfusion. HEENT: The head is normocephalic and atraumatic. The pupils are equal and reactive. The conjunctivae are clear and without drainage. Nares are patent and without drainage. Mouth reveals moist mucous membranes and the throat is without erythema and exudate. The external ears are intact. The ear canals are patent and without drainage. The tympanic membranes are intact. Neck: The neck is supple with full range of motion and non-tender. There are no carotid bruits. There is no neck vein distension. Respiratory: Chest is non-tender. Lungs are clear to auscultation and breath sounds are symmetrical and equal. Cardiovascular: Heart is regular rate and rhythm. There is no murmur or rub auscultated. There is no peripheral edema and pulses are symmetrical and equal. Abdomen: The abdomen is soft and non-tender. There are normal bowel sounds heard in all four quadrants and there is no organomegaly palpated. Musculoskeletal: There is no back tenderness noted. Extremities are non-tender with full range of motion. There is good capillary refill. There is no peripheral edema or calf tenderness elicited. Neurological: Patient is alert and oriented to person, place and time. The patient has symmetrical motor strength in all four extremities. Cranial nerves are grossly intact. Deep tendon reflexes are symmetrical and equal in all four extremities. Psychiatric: The patient has an appropriate affect and does not exhibit any anxiety or depression. Triage Information Reviewed: Yes Vital Signs On Initial Exam: Initial Vitals Temp Pulse Resp BP Pulse Ox 97.6 F 83 16 133/81 100 03/29/18 10:09 03/29/18 10:09 03/29/18 10:09 03/29/18 10:09 03/29/18 10:09 Vital Signs Reviewed: Yes Diagnostics - Vital Signs Vital Signs Temp Pulse Resp BP Pulse Ox 03/29/18 10:09 97.6 F 83 16 133/81 100 - Laboratory Result Diagrams: 03/29/18 10:33 Lab Statement: Any lab studies that have been ordered have been reviewed, and results considered in the medical decision making process. GIGU Course/Dx - Course Course Of Treatment: Ms. Washington is a very noncompliant patient of Dr. Jama' s. She was found incidentally to be quite anemic from blood loss and was seen in the emergency department yesterday. At that point she wanted a blood transfusion and an endoscopy. She apparently left AMA after 1 unit of blood prior to evaluation for endoscopy. She comes back today requesting the endoscopy and a second unit of blood. She was nontoxic in appearance with stable vitals on arrival. A hemoglobin was 8.1 compared to 7.0 yesterday and 7.3 on the . She does not meet criteria for blood transfusion right now and has no blood loss during her visit here in the emergency department. Dr. Martinez was consult and recommended admission for further workup given her noncompliance. Unfortunately without announcing her intention she ate a sandwich while waiting for her blood results. Dr. Jama was consult and came to the department and evaluated her. Dr. Jama reported that the patient was not willing to stay at that point and arranged for her to come back for an outpatient endoscopy tomorrow. - Diagnoses Provider Diagnoses: GI bleed - Physician Notifications Discussed Care Of Patient With: Tam Martinez Time Discussed With Above Provider: 12:21 Instructed by Provider To: Other - He suggested admitting the patient and the current POC is to scope the patient. Discharge - Sign-Out/Discharge Documenting (check all that apply): Patient Departure - Discharge Plan Condition: Stable Disposition: HOME Patient Education Materials: Gastrointestinal Bleeding (ED) Referrals: Ninoska Guerra MD [Medical Doctor] - 1 Day Additional Instructions: Do not eat or drink after midnight tonight and please report directly to the endoscopy suite tomorrow at 1PM. RETURN TO THE EMERGENCY DEPARTMENT FOR CHANGING OR WORSENING SYMPTOMS - Billing Disposition and Condition Condition: STABLE Disposition: Home - Attestation Statements Document Initiated by Swetae: Yes Documenting Scribe: Saw Rodriguez Provider For Whom Latoya is Documenting (Include Credential): Chente Hickman MD Scribe Attestation: I, Saw Rodriguez , scribed for Chente Hickman MD on 03/29/18 at 1737. Scribe Documentation Reviewed: Yes Provider Attestation: The documentation as recorded by the Saw whatley accurately reflects the service I personally performed and the decisions made by me, Chente Hickman MD Status of Scribe Document: Viewed Consult Consult: 1250: I discussed the case with Dr Moura who has accepted the patient for admission. 1550: Dr. Jama suggested discharging the patient and having her f/u in the endoscopy suite tomorrow at 1300.
[2018-03-29 11:31] LABS: Hematocrit 25 % (35-47); Hemoglobin 8.1 g/dl (12.0-16.0)
[2018-03-29] MEDS ORDERED: Pantoprazole IV* 40 MG IV ONE (13:22)
[2018-03-29] MEDS ORDERED: NS 0.9% 1000 ML* 1,000 ML IV ONE (13:22)
[2018-03-29] MEDS ORDERED: Pantoprazole IV* 80 MG in NS 0.9% 250 ML* 250 ML IV SCH (14:00)
--- NOTE | 2018-03-29 20:26 | CONS ---
CC: Dr. Shae Jama; Dr. Ridley * CONSULTATION REPORT: DATE OF CONSULT: 03/29/18 - EMERGENCY DEPT REASON FOR CONSULT: Anemia. HISTORY OF PRESENT ILLNESS: This is a 47-year-old female with a history of extensive noncompliance; STEMI, status post PCI, on Brilinta, who complains of dyspnea, dizziness, and weakness for the last week and a half. She initially presented to the hospital on 03/28/18 after being sent in by the nurse practitioner for Dr. Mcgill as her hemoglobin was found to be 7.3 with a positive occult stool. She presented to the ER, but did not want to stay and left the hospital AMA on 03/28/18. She received 1 unit of PRBCs on 03/28/18. Her hemoglobin went from 7 to 8.0. She denies any black or gross blood in the stool; however, prior triage note did state that there was scant blood. She admits to taking extensive ibuprofen 400 to 600 mg daily. Admits to occasional reflux, but denies any dysphagia or odynophagia. Denies any diarrhea, occasional constipation. Denies any weight loss or weight gain. She has been taking Brilinta since her cardiac catheterization in October of 2017. She left AMA after the cardiac catheterization, but states she did continue to take the Brilinta and follow up with senior statistical programmer as an outpatient afterwards. She denies any hematemesis. She states she had a nephrectomy in the past, but cannot recall as to why. Remainder of the 14-point review of systems is grossly negative, but limited by a reluctant historian. PAST MEDICAL HISTORY: STEMI, status post PCI by Dr. Engel, October 2017, on Brilinta therapy; diabetes, type 2, uncontrolled; obesity; hypertension; hyperlipidemia; asthma. She has never had a colonoscopy or upper endoscopy. MEDICATIONS: Home medications include: 1. Atorvastatin. 2. Captopril. 3. Glipizide. 4. Metformin. 5. Metoprolol succinate. 6. Montelukast. 7. Pantoprazole. 8. Brilinta. ALLERGIES: Include CODEINE. FAMILY HISTORY: Denies any family history of GI cancer, malignancies, or inflammatory bowel disease. SOCIAL HISTORY: She is a smoker, occasionally drinks alcohol. 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 REVIEW OF SYSTEMS: Remainder of the 14-point review of systems grossly negative. PHYSICAL EXAM: Vital Signs: Blood pressure is 133/81, pulse of 83, respiratory rate of 16, she is 100% on room air, she is 97.6. In general, alert and oriented, in no acute distress. HEENT: Atraumatic, normocephalic. Pupils equal, round, and reactive to light. Extraocular movements are intact. Conjunctivae are pink. Sclerae anicteric. Cardiovascular: Regular rate and rhythm. S1, S2. Respiratory: Clear to auscultation bilaterally. Abdomen: Soft, nontender, nondistended. Bowel sounds positive. Extremities: No clubbing, no cyanosis, and no edema. Skin: There is a pruritic rash on her posterior torso, a few scattered ecchymosis. Rectal: Refused. LABORATORY DATA: Hemoglobin today 8.1; her hemoglobin on 10/09/17 was 14. When she initially presented to the ER on 03/26/18, it was 7.3 and on 03/28/18, it was 7.0. She was given 1 unit PRBCs on that day and is now 8.1. INR on was 0.9. Glucose 221. Alkaline phosphatase 113, AST 18, ALT is 20. Platelet count was 508. ASSESSMENT AND PLAN: 1. This is a 47-year-old female with microcytic anemia and occult positivity in Dr. Mcgill's office. She initially presented to the ER on both 03/26/18 and 03/28/18 with hemoglobin of 7.3 and 7, and left AMA. She did get transfused on 03/28/18 one unit of PRBCs and today is 8.1. My recommendation is admission and monitoring in the hospital for symptomatic anemia and to rule out an upper gastrointestinal bleed with plans for tentative upper endoscopy on 03/30/18. The patient is unwilling to stay. She states that she needs to go home and care for her dog and has fears of staying in hospital. She left AMA shortly after the cardiac cath procedure was performed. I explained to her in great detail along with her daughter present that she was taking a significant risk including a potentially mortal risk including sudden about leaving against medical advice. She is clearly competent, able to make her decision. She understands that this may put her life at risk and is willing to take full responsibility for leaving against medical advice and understands these potential lethal complications. Because of her ongoing anemia, I have tentatively scheduled her for upper endoscopy as outpatient on 03/30/18 given her excessive NSAID use. In terms of her Brilinta, she is extremely high risk for in-stent thrombosis. At this point, would recommend continuing this therapy with close monitoring of hemoglobin by primary care physician. The initial recommendation from Dr. Engel was 1 year of interrupted therapy, even to the 6-month jae yet. I discussed with her to be completely n.p.o. after midnight and she may take her cardiac medicines with a sip of water in the morning. We will plan for upper endoscopy with Dr. Guerra on 03/30/18. If no etiology is found, we discussed the potential need for a potential colonoscopy going forward. Again, I extensively counseled her in regards to the risks of not staying in the hospital and monitoring and the patient is leaving against medical advice. The case was discussed with Dr. Shae Jama, the patient's primary care physician. 2. History of coronary artery disease, status post percutaneous coronary intervention, October 2017, high risk, still within the 6-month period. At this point, unless signs of gross hemorrhage, I think it is kapadia to continue the Brilinta. 3. History of medical noncompliance. Extensively counseled. [id number]/[facility] #: [id number] [place]
== END 2018-03-29 15:10 | disposition home or self-care (01) ==
LOC: ED 10:07
DX: K92.2 Gastrointestinal hemorrhage, unspecified (principal); Z91.19 Patient's noncompliance with other medical treatment and regimen; D50.0 Iron deficiency anemia secondary to blood loss (chronic); I25.2 Old myocardial infarction; E11.9 Type 2 diabetes mellitus without complications; Z79.84 Long term (current) use of oral hypoglycemic drugs; Z88.5 Allergy status to narcotic agent
CPT/HCPCS: 36415; 85014; 85018; 96361; 96374; 96375; 99282

== ENCOUNTER 2021-10-29 07:28 | Observation (INO) ==
[2021-10-29] MEDS ORDERED: Iodixanol (CONTRAST) 320 MG/ML 100 ML SDV IV ONE (07:39)
[2021-10-29 07:49] LABS: ABS Basophils 0.1 10^3/ul (0-0.2); ABS Eosinophils 0.2 10^3/ul (0-0.6); ABS Lymphocytes 1.5 10^3/ul (1.0-4.8); ABS Monocytes 0.6 10^3/ul (0-0.8); ABS Neutrophils 5.5 10^3/ul (1.5-7.7); Eosinophil % 2.9 %; Hematocrit 42 % (35-47); Hemoglobin 14.4 g/dL (12.0-16.0); Mean Corpuscular HGB Conc 34 g/dL (31-36); Mean Corpuscular Hemoglobin 31 pg (27-31); Mean Corpuscular Volume 90 fL (80-97); Mean Platelet Volume 8.9 fL (7.4-10.4); Platelet Count 315 10^3/uL (150-450); Red Blood Count 4.72 10^6 /uL (3.70-4.87); Red Cell Distribution Width 14 % (10-15); White Blood Count 7.9 10^3/uL (3.5-10.8)
[2021-10-29 07:59] LABS: Activated Partial Thrombo Time 46.6 seconds (26.0-38.0); INR 0.9 (0.89-1.11)
[2021-10-29 08:37] LABS: Albumin 4.4 g/dL (3.2-5.2); Albumin/Globulin Ratio 1.5 (1-3); Globulin 2.9 g/dL (2-4); HDL Cholesterol 44.7 mg/dL; Total Bilirubin 0.3 mg/dL (0.2-1.0); Total Protein 7.3 g/dL (6.4-8.9); eGFR CKD-EPI 67.4 (>60)
[2021-10-29 08:44] LABS: Glucose Confirmatory 416 mg/dL (70-100)
[2021-10-29] MEDS ORDERED: Insulin GLARGINE 100 un/ml 10 ml VIAL SUBCUT ONE (09:40)
[2021-10-29] MEDS ORDERED: Dextrose 50% Syringe 50 ml 25 GM/50 ML SYRINGE IV PUSH PRN ×3 (09:40→13:52)
[2021-10-29] MEDS ORDERED: NS 0.9% 500 ml BAG 500 ML IV ONE (09:41)
[2021-10-29] MEDS ORDERED: Al Hydrox/Mg Hydrox/Simet LIQ 30 ML UDC PO PRN (10:25)
[2021-10-29] MEDS ORDERED: Nicotine GUM 4MG FRUIT FLAVOR PO PRN (10:28)
[2021-10-29] MEDS ORDERED: Albuterol HFA INHALER 8 gm MDI INH PRN (10:44)
[2021-10-29] MEDS ORDERED: HYDROcodone/ACETAMIN 5/325 mg TAB PO PRN ×2 (10:44→11:01)
[2021-10-29] MEDS ORDERED: Nicotine PATCH 21 MG/24 HR PATCH TRANSDERM SCH (11:00)
[2021-10-29 12:29] VITALS: BP 146/96
[2021-10-30] MEDS ORDERED: Aspirin EC 81 mg TAB.EC (enteric coated) PO SCH (09:00)
== END 2021-10-29 15:57 | disposition left against medical advice (07) ==
LOC: EDHOLD 07:28 → ED 07:28 → EDHOLD 16:01
PROVIDERS: ADMIT Internal Medicine; ATTEND Internal Medicine